=== PATIENT | male | born 1955 | race Caucasian/White ===

== ENCOUNTER 2017-01-15 10:19 | Day surgery (SDC) | payer BC ==
--- NOTE | ~2017-01-15 | EGD ---
EGD REPORT [facility] [address] [id number] NAME: JACQUES MONTEMAYOR : 57 STATUS : [place] [facility] [place] [id number] AGE: 61 ADM/REG DATE : 01/15/17 MR#: [id number] REPORT SERV DATE: 01/15/17 DICTATED BY: VERN DC DATE: 01/15/17 REPORT STATUS : Draft [facility]: [facility] DATE: 01/15/17 [facility] Center Patient Name: Jacques Montemayor Date of : 1955 Attending MD: VERN DC MD Procedure Date No Time: 01/15/2017 Procedure: Colonoscopy Indications: High risk colon cancer surveillance: Personal history of colonic polyps, Incidental - Follow-up of colitis (Last colon 05/2016 incomplete) Referring MD: Alexia Strong Medicines: See the Anesthesia note for documentation of the administered medications Complications: No immediate complications. Procedure: Pre-Anesthesia Assessment: - ASA Grade Assessment: III - A patient with severe systemic disease. After I obtained informed consent, the scope was passed under direct vision. Throughout the procedure, the patient's blood pressure, pulse, and oxygen saturations were monitored continuously. The PCF [id number] was introduced through the anus and advanced to the terminal ileum, with identification of the appendiceal orifice and IC valve. The colonoscopy was performed without difficulty. The patient tolerated the procedure well. The quality of the bowel preparation was adequate. Findings: The perianal and digital rectal examinations were normal. Internal hemorrhoids were found during retroflexion and were small. The ascending colon appeared normal. Biopsies were taken with a cold forceps for histology. The descending colon appeared normal. Biopsies were taken with a cold forceps for histology. The sigmoid colon appeared normal. Biopsies were taken with a cold forceps for histology. The rectum appeared normal. Biopsies were taken with a cold forceps for histology. A sessile polyp was found in the descending colon. The polyp was small in size. The polyp was removed with a cold biopsy forceps. Resection and retrieval were complete. Normal colocolo anastomosis Impression: - Internal hemorrhoids. - The ascending colon is normal. Biopsied. EGD REPORT [address] [address] NAME: JACQUES MONTEMAYOR : [birth year] STATUS : [place] [facility] [place] [id number] AGE: 61 ADM/REG DATE : 01/15/17 MR#: [id number] REPORT SERV DATE: 01/15/17 DICTATED BY: VERN DC DATE: 01/15/17 REPORT STATUS : Draft TRANSCRIBED BY: [employer] DATE: 01/15/17 - The descending colon is normal. Biopsied. - The sigmoid colon is normal. Biopsied. - The rectum is normal. Biopsied. - One small polyp in the descending colon. Resected and retrieved. - Normal colocolo anastomosis Recommendation: - Patient has a contact number available for emergencies. The signs and symptoms of potential delayed complications were discussed with the patient. Return to normal activities tomorrow. Written discharge instructions were provided to the patient. - Regular diet. - Continue present medications. - Repeat colonoscopy in 3 years for surveillance. - Return to my office in 6 months. - Restart Pradaxa today Procedure Code(s): --- Professional --- 46032, Colonoscopy, flexible, proximal to splenic flexure; with biopsy, single or multiple Diagnosis Code(s): --- Professional --- K64.8, Other hemorrhoids D12.4, Benign neoplasm of descending colon Z86.010, Personal history of colonic polyps CPT copyright 2013 [employer]. All rights reserved. The codes documented in this report are preliminary and upon project designer review may be revised to meet current compliance requirements. Vern Dc MD VERN DC MD 01/15/2017 11:49 AM This report has been signed electronically. Number of Addenda: 0 Note Initiated On: 01/15/2017 11:20 AM Scope Withdrawal Time 0 hours 11 minutes 5 seconds [id number] [place] [id number]
[~2017-01-15 10:19] MED LIST: ACET500CAP PO; ALLEGRA180 PO; ASAB PO; AVAPRO300 MG PO; BEN25 PO; CELEBREX2 PO; DELTADOSE; DEPO-TESTOS100 MG/ML IM; DSS PO; FISH-EPA1000 MG PO; FLEX PO; GLUCPH PO; LIOR10 PO; LOP25 PO; LORTAB10 PO; MAVIK4 MG; MAVIK4 MG PO; MAX25 PO; MAXZIDE PO; METHOC750B PO; MOBIC15 MG PO; MOBIC7.5 PO; NEUR100 PO; NORCO1 TA1 PO; NORCO1 TAB PO; NORV10 PO; NORV5 PO; OXYCOD PO; PLAVIX PO; PRADAXA150 MG PO; PRIN10 PO; PRIN20 PO; SINGULAIR1 PO; X5 PO; ZOCOR20 PO; ZYRTEC ALLGY10 MG PO
[2017-04-27] MEDS ORDERED: COLAZAL750 MG PO (09:37)
[2017-04-27] MEDS ORDERED: PRADAXA150 MG PO (09:41)
== END 2017-01-15 23:59 | disposition home or self-care (01) ==
LOC: DMU 10:19
PROVIDERS: Internal Medicine Gastroenterology
PROC: 0DBP8ZX Excision of Rectum, Via Natural or Artificial Opening Endoscopic, Diagnostic (ICD-10-PCS; 2017-01-15)
PROC: 0DBN8ZX Excision of Sigmoid Colon, Via Natural or Artificial Opening Endoscopic, Diagnostic (ICD-10-PCS; 2017-01-15)
PROC: 0DBM8ZX Excision of Descending Colon, Via Natural or Artificial Opening Endoscopic, Diagnostic (ICD-10-PCS; 2017-01-15)
PROC: 0DBK8ZX Excision of Ascending Colon, Via Natural or Artificial Opening Endoscopic, Diagnostic (ICD-10-PCS; principal; 2017-01-15 11:30)
DX: Z12.11 Encounter for screening for malignant neoplasm of colon (principal); D12.4 Benign neoplasm of descending colon; K64.8 Other hemorrhoids; I10 Essential (primary) hypertension; I48.91 Unspecified atrial fibrillation; I73.9 Peripheral vascular disease, unspecified; G47.33 Obstructive sleep apnea (adult) (pediatric); E11.9 Type 2 diabetes mellitus without complications; Z86.010 Personal history of colon polyps; Z88.0 Allergy status to penicillin; Z95.5 Presence of coronary angioplasty implant and graft; Z88.5 Allergy status to narcotic agent; Z98.890 Other specified postprocedural states
CPT/HCPCS: 82962; 88305